=== PATIENT | female | born 1995 | race African-American/Black ===

== ENCOUNTER 2019-06-18 06:18 | Emergency (ER) | payer OTHER ==
[2019-06-18] MEDS ORDERED: NORMAL SALINE 1000 ML 1,000 ML IV ONE (06:38)
[2019-06-18 07:10] LABS: ABSOLUTE EOSINOPHILS # (AUTO) 0.1 10^3/uL (0.0-0.6); ABSOLUTE LYMPHOCYTES (AUTO) 2.4 10^3/uL (0.5-4.7); ABSOLUTE MONOCYTES (AUTO) 0.7 10^3/uL (0.1-1.4); ABSOLUTE NEUT (AUTO) 7.4 10^3/uL (1.7-8.2); BASOPHILS % (AUTO) 0.3 % (0-2); EOSINOPHILS % (AUTO) 1.3 % (0-6); HEMATOCRIT 38.5 % (36.0-47.0); HEMOGLOBIN 13.4 g/dL (12.0-15.5); LYMPHOCYTES % (AUTO) 22.7 % (13-45); MEAN CORPUSCULAR HEMOGLOBIN 27.8 pg (27.0-33.4); MEAN CORPUSCULAR HGB CONC 34.8 g/dL (32.0-36.0); MEAN CORPUSCULAR VOLUME 80 fl (80-97); MONOCYTES % (AUTO) 6.7 % (3-13); PLATELET COUNT 224 10^3/uL (150-450); RED BLOOD COUNT 4.82 10^6/uL (3.72-5.28); RED CELL DISTRIBUTION WIDTH 13.1 % (11.5-14.0); TOTAL CELLS COUNTED % (AUTO) 100 %; WHITE BLOOD COUNT 10.7 10^3/uL (4.0-10.5)
[2019-06-18] MEDS ORDERED: DEXTROSE 5%-LACTATED RINGERS 1,000 ML IV ONE ×2 (07:11→09:32)
[2019-06-18] MEDS ORDERED: METOCLOPRAMIDE HCL INJ/PF 10 MG/2 ML SDV IV ONE (07:11)
[2019-06-18 07:23] LABS: ALBUMIN 4.4 g/dL (3.5-5.0); ALKALINE PHOSPHATASE 79 U/L (38-126); ANION GAP 15 (5-19); ASPARTATE AMINO TRANSFERASE 38 U/L (14-36); BILIRUBIN,DIRECT 0.3 mg/dL (0.0-0.4); BLOOD UREA NITROGEN 6 mg/dL (7-20); CALCIUM 10.2 mg/dL (8.4-10.2); CARBON DIOXIDE 19 mmol/L (22-30); CHLORIDE 104 mmol/L (98-107); GLUCOSE 95 mg/dL (75-110); TOTAL PROTEIN 7.7 g/dL (6.3-8.2)
[2019-06-18 08:21] LABS: APPEARANCE,URINE SLIGHTLY-CLOUDY; BILIRUBIN,URINE NEGATIVE (NEGATIVE); GLUCOSE, URINE 50 mg/dL (NEGATIVE); KETONES,URINE 80 mg/dL (NEGATIVE); LEUKOCYTE ESTERASE,URINE NEGATIVE (NEGATIVE); NITRITE,URINE NEGATIVE (NEGATIVE); PROTEIN,URINE 100 mg/dL (NEGATIVE); URINE SPECIFIC GRAVITY 1.029
[2019-06-18 08:22] LABS: COLOR,URINE YELLOW
--- NOTE | 2019-06-18 08:48 | ER Document Report ---
Entered by DAHLIA MILES SCRIBE 06/18/19 0710 Acting as scribe for:JHOAN ARMSTRONG MD ED GI/ - General Chief Complaint: OB Problem (<20wks) Stated Complaint: VOMITING/14 WEEKS Time Seen by Provider: 06/18/19 06:59 Mode of Arrival: Ambulatory Information source: Patient Notes: This 24 year old female patient presents to the emergency department today with complaints of vomiting. Patient is 15 weeks , and has had vomiting since around the 6th week of but she states that for the last week her vomiting has become much more frequent. Patient states she was prescribed Vitamin B6 which has not really helped. Patient states that she is not taking pre-darryl vitamins because those "make her sick". Patient also complains of constipation. Patient denies fevers. TRAVEL OUTSIDE OF THE [place] IN LAST 30 DAYS: No - Related Data Allergies/Adverse Reactions: No Known Allergies Allergy (Unverified 04/10/17 23:47) Past Medical History - General Information source: Patient - Social History Smoking Status: Never Smoker Cigarette use (# per day): No Frequency of alcohol use: None Drug Abuse: None Lives with: Family Family History: Reviewed & Not Pertinent Patient has suicidal ideation: No Patient has homicidal ideation: No - Medical History Medical History: Negative Renal/ Medical History: Denies: Hx Peritoneal Dialysis Past Surgical History: Reports: Hx Appendectomy Review of Systems - Review of Systems Constitutional: denies: Fever EENT: No symptoms reported Cardiovascular: No symptoms reported Respiratory: No symptoms reported Gastrointestinal: See HPI, Nausea, Vomiting Genitourinary: No symptoms reported Female Genitourinary: See HPI, Musculoskeletal: No symptoms reported Skin: No symptoms reported Hematologic/Lymphatic: No symptoms reported Neurological/Psychological: No symptoms reported -: Yes All other systems reviewed and negative Physical Exam - Vital signs Vitals: Temp Pulse Resp BP Pulse Ox 97.8 F 117 H 16 136/86 H 98 06/18/19 06:34 06/18/19 06:34 06/18/19 06:34 06/18/19 06:34 06/18/19 06:34 Interpretation: Normal - General General appearance: Appears well, Alert - HEENT Head: Normocephalic, Atraumatic Eyes: Normal Pupils: PERRL - Respiratory Respiratory status: No respiratory distress Chest status: Nontender Breath sounds: Normal Chest palpation: Normal - Cardiovascular Rhythm: Regular Heart sounds: Normal auscultation Murmur: No - Abdominal Inspection: Normal Distension: No distension Bowel sounds: Normal Tenderness: Nontender Organomegaly: No organomegaly - Back Back: Normal, Nontender - Extremities General upper extremity: Normal inspection. No: Edema General lower extremity: Normal inspection. No: Edema - Neurological Neuro grossly intact: Yes Cognition: Normal Orientation: AAOx4 Adel Coma Scale Eye Opening: Spontaneous Adel Coma Scale Verbal: Oriented Erik Coma Scale Motor: Obeys Commands Erik Coma Scale Total: 15 Speech: Normal - Psychological Associated symptoms: Normal affect, Normal mood - Skin Skin Temperature: Warm Skin Moisture: Dry Skin Color: Normal Course - Re-evaluation Re-evalutation: 06/18/19 09:36 Patient states that her nauseousness and headache resolved after the Reglan. She is feeling much better. We will give her an additional liter of fluids, and discharged with prescription for Reglan. - Vital Signs Vital signs: Temp Pulse Resp BP Pulse Ox 97.8 F 117 H 16 136/86 H 98 06/18/19 06:34 06/18/19 06:34 06/18/19 06:34 06/18/19 06:34 06/18/19 06:34 - Laboratory Result Diagrams: 06/18/19 06:45 06/18/19 06:45 Laboratory results interpreted by me: 06/18/19 06/18/19 06/18/19 06:45 06:45 07:55 WBC 10.7 H Carbon Dioxide 19 L BUN 6 L AST 38 H Urine Protein 100 H Urine Glucose (UA) 50 H Urine Ketones 80 H Urine Urobilinogen 4.0 H Discharge - Discharge Clinical Impression: Hyperemesis gravidarum Headache Qualifiers: Headache type: unspecified Headache chronicity pattern: acute headache Intractability: not intractable Qualified Code(s): R51 - Headache Condition: Stable Disposition: HOME, SELF-CARE Additional Instructions: Hyperemesis Gravidarum Hyperemesis gravidarum is the medical term for severe vomiting during . We don't know exactly why it occurs, but it's a common problem. Dehydration can occur. This reduces blood flow to the placenta, decreasing the baby's nourishment. The baby will also become dehydrated. There can be harmful changes in blood sodium, potassium, or acid balance. Our goal is to correct, and prevent, dehydration. For severe cases, we give IV fluids. Antinausea medication will be prescribed. (Don't be concerned about " defects" -- the risk to you and your baby from the hyperemesis is the biggest problem. The antinausea medication is very safe at this stage of .) Call the doctor if you have vaginal bleeding, abdominal pain, severe lightheadedness or weakness, or other alarming symptoms. Headache The physician does not feel that the headache you are experiencing has a serious underlying cause. Most headaches are due to emotional stress, with resultant muscle tension (tension headache). Occasionally, headaches are secondary to changes in the blood vessels of the scalp (vascular headache and migraine headache). Sometimes, a headache is the first symptom of another developing illness, such as a viral infection. You have no evidence of stroke, bleeding, meningitis, or other serious cause of your headache. The treatment of headaches varies with the severity and cause of the pain. Not all headaches need pain shots. In fact, there is evidence that using narcotics for headaches may make them worse in the long run. The physician will determine the therapy that's in your best interest. If you develop a fever, if the headache is different from any you've previously experienced, or if the headache progressively worsens, then call your physician at once or go to the emergency room. Take medication as prescribed for nausea, vomiting, or headache. Drink plenty of cool clear liquids throughout the day and evening today. Follow-up with your SOLAR PANEL TECHNICIAN doctor if not improving. RETURN TO THE EMERGENCY ROOM IF ANY NEW OR WORSENING SYMPTOMS. Prescriptions: Metoclopramide HCl [Reglan 10 mg Tablet] 10 mg PO Q4 PRN #25 tablet PRN Reason: Scribe Attestation: 06/18/19 09:32 I personally performed the services described in the documentation, reviewed and edited the documentation which was dictated to the scribe in my presence, and it accurately records my words and actions. I personally performed the services described in the documentation, reviewed and edited the documentation which was dictated to the scribe in my presence, and it accurately records my words and actions.
[2019-06-18 10:43] VITALS: BP 120/64
== END 2019-06-18 10:43 | disposition home or self-care (01) ==
LOC: ER 06:18
DX: O21.0 Mild hyperemesis gravidarum (principal); O99.612 Diseases of the digestive system complicating pregnancy, second trimester; K59.00 Constipation, unspecified; O26.892 Other specified pregnancy related conditions, second trimester; R51 Headache; Z79.899 Other long term (current) drug therapy; Z3A.15 15 weeks gestation of pregnancy
CPT/HCPCS: 99284; 96361; 96374; 36415; 85025; 80053; 81001; J2765; J7121; J7030

== ENCOUNTER 2019-06-27 10:06 | Emergency (ER) | payer OTHER ==
[2019-06-27] MEDS ORDERED: METOCLOPRAMIDE HCL INJ/PF 10 MG/2 ML SDV IV ONE (10:59)
[2019-06-27] MEDS ORDERED: NORMAL SALINE 1000 ML 1,000 ML IV ONE (10:59)
--- NOTE | 2019-06-27 11:00 | ER Document Report ---
ED Medical Screen (RME) - General Chief Complaint: Vomiting Stated Complaint: POSSIBLE DEHYDRATION Time Seen by Provider: 06/27/19 10:57 Mode of Arrival: Ambulatory Information source: Patient Notes: Otherwise healthy 24-year-old female presents the emergency department chief complaint of nausea vomiting in the setting of . Patient reports she is approximately 15 weeks , states she has been seen and multiple physicians in ERs for persistent vomiting, she is taking Reglan as well as Unisom and vitamin B6, she states she cannot keep the antinausea medications down. Patient is tachycardic in triage, heart rate 106, otherwise calm, cooperative, no acute distress noted. I have greeted and performed a rapid initial assessment of this patient. A comprehensive ED assessment and evaluation of the patient, analysis of test results and completion of the medical decision making process will be conducted by additional ED providers. I have specifically instructed the patient or family members with the patient to immediately return to any nursing staff should anything change in the patient's condition or with their chief complaint. TRAVEL OUTSIDE OF THE [place] IN LAST 30 DAYS: No - Related Data Allergies/Adverse Reactions: No Known Allergies Allergy (Unverified 04/10/17 23:47) Past Medical History - Social History Chew tobacco use (# tins/day): No Frequency of alcohol use: None Drug Abuse: None Renal/ Medical History: Denies: Hx Peritoneal Dialysis Past Surgical History: Reports: Hx Appendectomy Physical Exam - Vital signs Vitals: Temp Pulse Resp BP Pulse Ox 98 F 106 H 16 150/92 H 99 06/27/19 10:47 06/27/19 10:47 06/27/19 10:47 06/27/19 10:47 06/27/19 10:47 Course - Vital Signs Vital signs: Temp Pulse Resp BP Pulse Ox 98 F 106 H 16 150/92 H 99 06/27/19 10:47 06/27/19 10:47 06/27/19 10:47 06/27/19 10:47 06/27/19 10:47
[2019-06-27 11:50] LABS: ABSOLUTE EOSINOPHILS # (AUTO) 0.1 10^3/uL (0.0-0.6); ABSOLUTE LYMPHOCYTES (AUTO) 1.6 10^3/uL (0.5-4.7); ABSOLUTE MONOCYTES (AUTO) 0.8 10^3/uL (0.1-1.4); ABSOLUTE NEUT (AUTO) 7.2 10^3/uL (1.7-8.2); BASOPHILS % (AUTO) 0.4 % (0-2); EOSINOPHILS % (AUTO) 0.9 % (0-6); HEMATOCRIT 40.5 % (36.0-47.0); LYMPHOCYTES % (AUTO) 16.7 % (13-45); MEAN CORPUSCULAR HEMOGLOBIN 27.6 pg (27.0-33.4); MEAN CORPUSCULAR HGB CONC 34.7 g/dL (32.0-36.0); MEAN CORPUSCULAR VOLUME 80 fl (80-97); MONOCYTES % (AUTO) 8.2 % (3-13); PLATELET COUNT 236 10^3/uL (150-450); RED BLOOD COUNT 5.08 10^6/uL (3.72-5.28); RED CELL DISTRIBUTION WIDTH 13.5 % (11.5-14.0); SEGMENTED NEUTROPHILS % (AUTO) 73.8 % (42-78); TOTAL CELLS COUNTED % (AUTO) 100 %; WHITE BLOOD COUNT 9.8 10^3/uL (4.0-10.5)
[2019-06-27 12:01] LABS: ALBUMIN 4.8 g/dL (3.5-5.0); ALKALINE PHOSPHATASE 89 U/L (38-126); ANION GAP 16 (5-19); ASPARTATE AMINO TRANSFERASE 28 U/L (14-36); BILIRUBIN,DIRECT 0.3 mg/dL (0.0-0.4); BILIRUBIN,TOTAL 1.3 mg/dL (0.2-1.3); BLOOD UREA NITROGEN 8 mg/dL (7-20); CALCIUM 10.5 mg/dL (8.4-10.2); CARBON DIOXIDE 18 mmol/L (22-30); CHLORIDE 106 mmol/L (98-107); GLUCOSE 97 mg/dL (75-110); POTASSIUM 3.9 mmol/L (3.6-5.0)
[2019-06-27 13:06] LABS: APPEARANCE,URINE SLIGHTLY-CLOUDY; BILIRUBIN,URINE NEGATIVE (NEGATIVE); COLOR,URINE AMBER; GLUCOSE, URINE NEGATIVE (NEGATIVE); KETONES,URINE 80 mg/dL (NEGATIVE); LEUKOCYTE ESTERASE,URINE TRACE (NEGATIVE); NITRITE,URINE NEGATIVE (NEGATIVE); PROTEIN,URINE 100 mg/dL (NEGATIVE); URINE SPECIFIC GRAVITY 1.031
--- NOTE | 2019-06-27 14:15 | ER Document Report ---
ED General - General Chief Complaint: Vomiting Stated Complaint: POSSIBLE DEHYDRATION Time Seen by Provider: 06/27/19 10:57 Mode of Arrival: Ambulatory Information source: Patient Notes: 24-year-old female approximately 15 weeks G1, P0 presents emergency department with complaints of nausea and vomiting. Reports she has been nausea and vomiting since the beginning of her . She has been treated multiple times at [facility] for this with IV fluids. Patient reports she has taken Reglan and Unasyn VB6 without relief of symptoms. She denies fever and diarrhea. She reports she vomits all day long, not just in the morning. Denies pain with void. Denies vaginal discharge, denies vaginal bleeding. Denies abdominal pain. TRAVEL OUTSIDE OF THE [place] IN LAST 30 DAYS: No - HPI Onset: Other Onset/Duration: Persistent Quality of pain: No pain Associated symptoms: Nausea, Vomiting Exacerbated by: Denies Relieved by: Denies Similar symptoms previously: Yes Recently seen / treated by doctor: Yes - Related Data Allergies/Adverse Reactions: No Known Allergies Allergy (Verified 06/27/19 10:59) Past Medical History - General Information source: Patient Last Menstrual Period: 03/04/19 - Social History Smoking Status: Never Smoker Chew tobacco use (# tins/day): No Frequency of alcohol use: None Drug Abuse: None Lives with: Family Family History: Reviewed & Not Pertinent Patient has suicidal ideation: No Patient has homicidal ideation: No Pulmonary Medical History: Reports: Hx Asthma Renal/ Medical History: Denies: Hx Peritoneal Dialysis Past Surgical History: Reports: Hx Appendectomy, Hx Oral Surgery Review of Systems - Review of Systems Notes: Review HPI for review of systems., All other systems negative Physical Exam - Vital signs Vitals: Temp Pulse Resp BP Pulse Ox 98.0 F 106 H 16 150/92 H 99 06/27/19 10:46 06/27/19 10:46 06/27/19 10:46 06/27/19 10:46 06/27/19 10:46 - General General appearance: Appears well, Alert In distress: None - HEENT Head: Normocephalic Eyes: Normal Conjunctiva: Normal Extraocular movements intact: Yes Pupils: PERRL Mouth/Lips: Normal Mucous membranes: Normal, Moist Pharynx: Normal. No: Erythema, Exudate, Tonsillar hypertrophy Neck: Normal, Supple. No: Lymphadenopathy - Respiratory Respiratory status: No respiratory distress Chest status: Nontender Breath sounds: Normal Chest palpation: Normal - Cardiovascular Rhythm: Regular Heart sounds: Normal auscultation Murmur: No - Abdominal Inspection: Gravid female Distension: No distension Bowel sounds: Normal Tenderness: Nontender - Back Back: Normal - Extremities General upper extremity: Normal ROM General lower extremity: Normal ROM - Neurological Neuro grossly intact: Yes Cognition: Normal Orientation: AAOx4 Erik Coma Scale Eye Opening: Spontaneous Erik Coma Scale Verbal: Oriented [place] Coma Scale Motor: Obeys Commands Erik Coma Scale Total: 15 Speech: Normal - Psychological Associated symptoms: Normal affect, Normal mood - Skin Skin Temperature: Warm Skin Moisture: Dry Skin Color: Normal Course - Re-evaluation Re-evalutation: 06/27/19 14:14 Patient presents with complaints of nausea vomiting throughout her entire . She is approximately 15 weeks . She received 1 L of fluids ordered by pit provider. She reports she is feeling better has not vomited since then. She denies abdominal pain. Denies pain with void denies vaginal bleeding. Ice chips heart tones ordered. 06/27/19 16:26 heart tones obtained 153. Specific gravity 1.031 with ketones noted in her urine. She did receive a liter of fluids patient drinking ice chips. Declines any crackers. No further vomiting reports she usually feels much better after she received a liter of fluids. She was also prescribed Phenergan rectally for return of nausea. She was instructed on the importance of follow- up with her CANAL SUPERINTENDENT. Patient reports she feels much better and is requesting to go home. Patient discharged home with strict return instructions. Laboratory 06/27/19 06/27/19 06/27/19 11:24 11:24 12:38 WBC 9.8 RBC 5.08 Hgb 14.0 Hct 40.5 MCV 80 MCH 27.6 MCHC 34.7 RDW 13.5 Plt Count 236 Lymph % (Auto) 16.7 [place] % (Auto) 8.2 Eos % (Auto) 0.9 Baso % (Auto) 0.4 Absolute Neuts (auto) 7.2 Absolute Lymphs (auto) 1.6 Absolute Monos (auto) 0.8 Absolute Eos (auto) 0.1 Absolute Basos (auto) 0.0 Seg Neutrophils % 73.8 Sodium 140.0 Potassium 3.9 Chloride 106 Carbon Dioxide 18 L Anion Gap 16 BUN 8 Creatinine 0.62 Est GFR ( Amer) > 60 Est GFR (MDRD) Non-Af > 60 Glucose 97 Calcium 10.5 H Total Bilirubin 1.3 Direct Bilirubin 0.3 Neonat Total Bilirubin Not Reportable Neonat Direct Bilirubin Not Reportable Neonat Indirect Bili Not Reportable AST 28 ALT 35 Alkaline Phosphatase 89 Total Protein 8.0 Albumin 4.8 Urine Color SULEMAN Urine Appearance SLIGHTLY-CLOUDY Urine pH 6.0 Ur Specific [place] 1.031 Urine Protein 100 H Urine Glucose (UA) NEGATIVE Urine Ketones 80 H Urine Blood NEGATIVE Urine Nitrite NEGATIVE Urine Bilirubin NEGATIVE Urine Urobilinogen 2.0 H Ur Leukocyte Esterase TRACE H Urine WBC (Auto) 4 Urine RBC (Auto) 2 Squamous Epi Cells Auto 6 Urine Mucus (Auto) MANY Urine Ascorbic Acid NEGATIVE 06/27/19 16:27 06/27/19 16:28 - Vital Signs Vital signs: Temp Pulse Resp BP Pulse Ox 98.3 F 92 16 119/52 L 98 06/27/19 15:35 06/27/19 15:35 06/27/19 15:35 06/27/19 15:35 06/27/19 15:35 - Laboratory Result Diagrams: 06/27/19 11:24 06/27/19 11:24 Laboratory results interpreted by me: 06/27/19 06/27/19 11:24 12:38 Carbon Dioxide 18 L Calcium 10.5 H Urine Protein 100 H Urine Ketones 80 H Urine Urobilinogen 2.0 H Ur Leukocyte Esterase TRACE H Discharge - Discharge Clinical Impression: Nausea and vomiting Qualifiers: Vomiting type: unspecified Vomiting Intractability: unspecified Qualified Code(s): R11.2 - Nausea with vomiting, unspecified Qualifiers: Weeks of gestation: 15 weeks Qualified Code(s): Z3A.15 - 15 weeks gestation of Condition: Stable Disposition: HOME, SELF-CARE Instructions: Antinausea Medication ([facility]), Intravenous (IV) Fluids ([facility]), ([facility]), Vomiting ([facility]) Additional Instructions: *You have been evaluated for nausea/vomiting, *Insert medication as prescribed- 25 mg pr every 6 hours as indicated for nausea *Ensure adequate fluid intake as discussed to prevent dehydration-clear liquids advance as tolerated *Follow up with your ROVING WEIGHT GAUGER within 1 week for recheck *Return to ED for worsening condition, changes, needs Forms: Elevated Blood Pressure
[2019-06-27] MEDS ORDERED: PROMETHAZINE HCL 25 MG SUPP (4 SUPP/ER DISP) PR ONE (15:13)
[2019-06-27 15:38] VITALS: BP 119/52
== END 2019-06-27 15:37 | disposition home or self-care (01) ==
LOC: ER 10:06
DX: O21.9 Vomiting of pregnancy, unspecified (principal); Z3A.15 15 weeks gestation of pregnancy
CPT/HCPCS: 99284; 96361; 96374; 36415; 85025; 80053; 81001; J3490; J2765; J7030